=== PATIENT | female | born 1975 | race Caucasian/White ===

== ENCOUNTER 2022-08-02 12:06 | Day surgery (SDC) | payer OTHER ==
[2022-08-02 12:56] VITALS: TEMP 98.9
[2022-08-02] MEDS ORDERED: LACTATED RINGERS 1,000 ML IV ONE (12:56)
[2022-08-02 13:02] LABS: Glucose,Whole Blood 104 mg/dL (70-110)
[2022-08-02] MEDS ORDERED: LIDOCAINE 2% INJ 20 MG/ML (2 ML VIAL) ONE (13:40)
[2022-08-02] MEDS ORDERED: PROPOFOL 10 MG/ML 20 ML VIAL IV ONE (13:40)
--- NOTE | 2022-08-02 13:58 | P.PCN ---
Date of Procedure: 08/02/22 Procedure(s) Performed: BRIEF HISTORY: Patient is a 46-year-old, pleasant, white female scheduled for an upper endoscopy as a part of evaluation of intermittent dysphagia to solids for the last 3 weeks. Usually happens with solids and elevated liquids. She has long-standing history of GERD and has been on omeprazole 20 mg daily. He scheduled for an upper endoscopy with possible dilation today.. PROCEDURE PERFORMED: Esophagogastroduodenoscopy with biopsy. PREOPERATIVE DIAGNOSIS: Long-standing history of GERD and intermittent dysphagia to solids. IV sedation per anesthesia. PROCEDURE: After informed consent was obtained, the patient was brought into the endoscopy unit. IV sedation was administered by Anesthesia under continuous monitoring. Initially the Olympus GIF-140 video endoscope was inserted into the mouth. Esophagus intubated without any difficulty. It was gradually advanced into the stomach and duodenum and carefully examined. The bulb and the second part of the duodenum appeared normal. The scope at this time was withdrawn to the stomach, adequately insufflated with air, and upon careful examination, mucosa of the antrum, had mild gastritis and biopsies were done from this area. Mucosa of the body, cardia and the fundus appeared normal. The scope was then withdrawn into the esophagus. The GE junction was located at 39 cm from the incisors. The esophagus appeared normal. There were no erosions or ulcerations seen. No evidence of esophageal stricture. Multiple biopsies were done from the mid and distal esophagus to rule out eosinophilic esophagitis and the patient tolerated the procedure well. IMPRESSION: 1. Normal-appearing esophagus with no evidence of esophagitis or esophageal stricture. 2. Minimal antral gastritis. RECOMMENDATIONS: The findings of this examination were discussed with the patient as well as her family. She was advised to continue with omeprazole 20 mg daily and follow antireflux measures. In the meantime, we will await biopsy results and she will be seen in office in 3-4 weeks.
[2022-08-02 14:23] VITALS: BP 129/83; PULSE 70; RESP 20
== END 2022-08-02 14:51 | disposition home or self-care (01) ==
LOC: ORWHC2ENDO 12:06
PROVIDERS: ATTEND Internal Medicine Gastroenterology
DX: K21.9 Gastro-esophageal reflux disease without esophagitis (principal); K29.50 Unspecified chronic gastritis without bleeding; E11.9 Type 2 diabetes mellitus without complications; Z79.899 Other long term (current) drug therapy
CPT/HCPCS: 81025; 88305; 88342; 43239; J2704; J2001

== ENCOUNTER → 2023-01-16 | Outpatient (CLI) | payer OTHER ==
--- NOTE | 2023-01-17 23:00 | MM ---
Reason for Exam: Screening (asymptomatic). Baseline mammogram. Patient History: Menarche at age 13. First Full-Term at age 20. Last menstrual period: 01/09/2023 Risk Values: [place] 5 year model risk: 0.6%. NCI Lifetime model risk: 6.9%. Prior Study Comparison: Patient's first Mammogram. Tissue Density: There are scattered fibroglandular densities. Findings: Analyzed By CAD. There is an area of asymmetric density located centrally on the left cc view which is more defined. It incompletely disperses on 3-D images and further evaluation is recommended. Otherwise, no significant change. Overall Assessment: Incomplete: need additional imaging evaluation, BI-RAD 0 Management: Special View Mammogram of the left breast. Diagnostic Breast Ultrasound of the left breast. Additional views to include spot 3-D CC, 3-D CC rolled medial, and 3-D lateral views. Targeted left breast ultrasound if any persisting abnormality. [facility] will attempt to contact patient to return for supplemental views and ultrasound if indicated. Electronically signed and approved by: Garima Kirk M.D. Radiologist
== END | disposition home or self-care (01) ==
LOC: RADMAMWWP 16:49
PROVIDERS: ATTEND Family Medicine
DX: Z12.31 Encounter for screening mammogram for malignant neoplasm of breast (principal)
CPT/HCPCS: 77063; 77067

== ENCOUNTER 2023-01-18 13:08 | Observation (INO) | payer OTHER ==
[2023-01-18] MEDS ORDERED: ASPIRIN 81 MG PO STA (13:39)
[2023-01-18] MEDS ORDERED: NITROGLYCERIN SL TABS 0.4 MG TAB SUBLINGUAL STA (13:39)
--- NOTE | 2023-01-18 13:44 | ED ---
General Adult HPI - General Chief complaint: Chest Pain Stated complaint: Chest pain Time Seen by Provider: 01/18/23 13:10 Source: patient, EMS Mode of arrival: EMS Limitations: no limitations - History of Present Illness Initial comments: This patient is a 47-year-old woman presenting to have evaluation of a constellation of things that started around 11 AM. The patient states she had been doing some cleaning around the house and she noticed she was developing headache. She describes it as generalized, pounding, she could hear pulse associated with it. She did not have any neurologic symptoms. She states that shortly after that she noticed that her chest was feeling tight. She checked her blood pressure and it was up over 200. EMS was called and brought the patient to be seen. She did have aspirin and nitroglycerin and the symptoms hav e resolved. Patient states she noticed there was some left arm numbness associated with the symptoms. Currently all of the symptoms have resolved. No dyspnea, diaphoresis, nausea or vomiting. No lightheadedness or syncope. No palpitations. Onset/Timin -: hour(s) Location: head, chest Radiation: non-radiation Quality: aching Consistency: now resolved Improves with: none Worsens with: none Associated Symptoms: denies other symptoms Treatments Prior to Arrival: none - Related Data Home Medications Medication Instructions Recorded Confirmed Cholecalciferol [Vitamin D3 (125 125 mcg PO DAILY 08/01/22 08/01/22 Mcg = 5000 Iu)] Naltrexone HCl 25 mg PO DAILY 08/01/22 08/01/22 Omeprazole 20 mg PO DAILY 08/01/22 08/01/22 buPROPion HCL [buPROPion HCL XL] 300 mg PO DAILY 08/01/22 08/01/22 metFORMIN HCL 500 mg PO DAILY 08/01/22 08/01/22 Allergies Allergy/AdvReac Type Severity Reaction Status Date / Time No Known Allergies Allergy Verified 01/18/23 13:26 Review of Systems ROS Statement: Those systems with pertinent positive or pertinent negative responses have been documented in the HPI. ROS Other: All systems not noted in ROS Statement are negative. Constitutional: Denies: fever, chills, weakness Eyes: Denies: eye pain, vision change Respiratory: Denies: cough, dyspnea, wheezes Cardiovascular: Reports: chest pain. Denies: palpitations, edema, syncope Gastrointestinal: Denies: abdominal pain, nausea, vomiting, diarrhea Genitourinary: Denies: dysuria, frequency, hematuria Musculoskeletal: Denies: back pain Skin: Denies: rash Neurological: Reports: headache. Denies: weakness, numbness, paresthesias, confusion Hematological/Lymphatic: Denies: easy bleeding Past Medical History Past Medical History: No Reported History Additional Past Medical History / Comment(s): problems swallowing for the last 3 weeks, can drink liquids, has not been able to take any pills. pre diabetic. but was taking metformin. pt has issues with eating when not busy enough, was taking meds to loose wt and keep her mind off of food. per pt History of Any Multi-Drug Resistant Organisms: None Reported Additional Past Surgical History / Comment(s): D&C Past Anesthesia/Blood Transfusion Reactions: No Reported Reaction Past Psychological History: No Psychological Hx Reported Smoking Status: Former smoker, Light tobacco smoker Past Alcohol Use History: None Reported Past Drug Use History: None Reported - Past Family History Mother Family Medical History: Myocardial Infarction ([place]) General Exam Limitations: no limitations General appearance: alert, in no apparent distress Head exam: Present: atraumatic, normocephalic Eye exam: Present: normal appearance. Absent: scleral icterus, conjunctival injection ENT exam: Present: normal oropharynx Neck exam: Present: normal inspection, full ROM. Absent: tenderness, meningismus Respiratory exam: Present: normal lung sounds bilaterally. Absent: respiratory distress, wheezes, rales, rhonchi, stridor Cardiovascular Exam: Present: regular rate, normal rhythm, normal heart sounds. Absent: systolic murmur, diastolic murmur, rubs, gallop GI/Abdominal exam: Present: soft. Absent: distended, tenderness, guarding, rebound, rigid, mass, pulsatile mass, hernia Extremities exam: Present: normal inspection, full ROM, normal capillary refill. Absent: tenderness, pedal edema, calf tenderness Back exam: Present: normal inspection. Absent: CVA tenderness (R), CVA tenderness (L) Neurological exam: Present: alert, oriented X3, CN II-XII intact. Absent: motor sensory deficit Skin exam: Present: warm, dry, intact, normal color. Absent: rash Course Vital Signs 01/18/23 01/18/23 01/18/23 13:12 13:30 14:00 Temperature 98.7 F Pulse Rate 70 65 58 L Respiratory 18 18 20 Rate Blood Pressure 140/82 140/82 145/83 O2 Sat by Pulse 98 99 97 Oximetry 01/18/23 14:30 Temperature Pulse Rate 62 Respiratory 18 Rate Blood Pressure 133/69 O2 Sat by Pulse 99 Oximetry EKG Findings - EKG Results: EKG: interpreted by ERMD, sinus rhythm (Rate 69 bpm), normal axis, normal QRS - Blocks, [place], Hypertrophy, ST Abn: Repolarization changes or abnormalities: nonspecific abnormality, ST segment, and/or T wave Medical Decision Making - Medical Decision Making The patient had 2 view chest x-ray which I interpreted as negative for acute infiltrate, pneumothorax, congestive heart failure. Was pt. sent in by a medical professional or institution (, PA, YACHT BUILDER, urgent care, hospital, or detention...) When possible be specific @ -[No] Did you speak to anyone other than the patient for history (EMS, parent, family, police, friend...)? What history was obtained from this source @ -[The patient's did give some history Did you review nursing and triage notes (agree or disagree)? Why? @ -[I reviewed and agree with nursing and triage notes] Were old charts reviewed (outside hosp., previous admission, EMS record, old EKG, old radiological studies, urgent care reports/EKG's, detention records)? Report findings @ -[No old charts were reviewed] Differential Diagnosis (chest pain, altered mental status, abdominal pain women, abdominal pain men, vaginal bleeding, weakness, fever, dyspnea, syncope, headache, dizziness, GI bleed, back pain, seizure, CVA, palpatations, mental health, musculoskeletal)? @ -[Differential Chest Pain: Stable Angina, Unstable Angina, STEMI, NSTEMI Aortic Dissection, Pneumothorax, Musculoskeletal, Esophageal Spasm GERD, Cholecystitis, Pancreatitis, Zoster, this is not meant to be an all-inclusive list. EKG interpreted by me (3pts min.). @ -[I interpreted As above] X-rays interpreted by me (1pt min.). @ -\I interpreted as above CT interpreted by me (1pt min.). @ -[None done] U/S interpreted by me (1pt. min.). @ -[None done] What testing was considered but not performed or refused? (CT, X-rays, U/S, labs)? Why? @ -[None] What meds were considered but not given or refused? Why? @ -[None] Did you discuss the management of the patient with other professionals (professionals i.e. , PA, YACHT BUILDER, lab, RT, psych nurse, social media campaign manager, furnace builder, teacher, transportation security officer, renal case manager)? Give summary @ -[Case discussed with admitting physician Was smoking cessation discussed for >3mins.? @ -[No] Was critical care preformed (if so, how long)? @ -[No] Were there social determinants of health that impacted care today? How? (Homelessness, low income, unemployed, alcoholism, drug addiction, transportation, low edu. Level, literacy, decrease access to med. care, longterm, rehab)? @ -[No] Was there de-escalation of care discussed even if they declined (Discuss DNR or withdrawal of care, Hospice)? DNR status @ -[No] What co-morbidities impacted this encounter? (DM, HTN, Smoking, COPD, CAD, Cancer, CVA, ARF, Chemo, Hep., AIDS, mental health diagnosis, sleep apnea, morbid obesity)? @ -[None] Was patient admitted / discharged? Hospital course, mention meds given and route, prescriptions, significant lab abnormalities, going to OR and other pertinent info. @ -[The patient is 47-year-old woman with episode of chest pain and some associated hypertension. She did have relief with nitroglycerin and aspirin were administered by EMS. The patient has no previous history of cardiology workup, and given patient's family history will admit for serial cardiac enzymes, telemetry monitoring, cardiology consultation Undiagnosed new problem with uncertain prognosis? @ -[No] Drug Therapy requiring intensive monitoring for toxicity (Heparin, Nitro, Insulin, Cardizem)? @ -[No] Were any procedures done? @ -[No] Diagnosis/symptom? @ -[Acute chest pain Acute, or Chronic, or Acute on Chronic? @ -[Acute Uncomplicated (without systemic symptoms) or Complicated (systemic symptoms)? @ -[Uncomplicated Side effects of treatment? @ -[No] Exacerbation, Progression, or Severe Exacerbation? @ -[No] Poses a threat to life or bodily function? How? (Chest pain, [place], [place], pneumonia, PE, COPD, DKA, ARF, appy, cholecystitis, CVA, Diverticulitis, Homicidal, Suicidal, threat to staff... and all critical care pts) @ -[Chest pain if of cardiac etiology may regress to [place]/ - Lab Data Result diagrams: 01/18/23 13:58 01/18/23 13:58 Lab Results 01/18/23 01/18/23 01/18/23 Range/Units 13:58 13:58 13:58 WBC 9.8 (3.8-10.6) k/uL RBC 4.77 (3.80-5.40) m/uL Hgb 13.4 (11.4-16.0) gm/dL Hct 40.3 (34.0-46.0) % MCV 84.4 (80.0-100.0) fL MCH 28.2 (25.0-35.0) pg MCHC 33.4 (31.0-37.0) g/dL RDW 13.3 (11.5-15.5) % Plt Count 229 (150-450) k/uL MPV 8.6 Neutrophils % 71 % Lymphocytes % 21 % Monocytes % 5 % Eosinophils % 1 % Basophils % 0 % Neutrophils # 7.0 (1.3-7.7) k/uL Lymphocytes # 2.1 (1.0-4.8) k/uL Monocytes # 0.5 (0-1.0) k/uL Eosinophils # 0.1 (0-0.7) k/uL Basophils # 0.0 (0-0.2) k/uL PT 10.6 (9.0-12.0) sec INR 1.0 (<1.2) APTT 23.2 (22.0-30.0) sec Sodium 137 (137-145) mmol/L Potassium 4.4 (3.5-5.1) mmol/L Chloride 104 (98-107) mmol/L Carbon Dioxide 25 (22-30) mmol/L Anion Gap 8 mmol/L BUN 12 (7-17) mg/dL Creatinine 0.60 (0.52-1.04) mg/dL Est GFR (CKD-EPI)AfAm >90 (>60 ml/min/1.73 sqM) Est GFR (CKD-EPI)NonAf >90 (>60 ml/min/1.73 sqM) Glucose 105 H (74-99) mg/dL Calcium 9.4 (8.4-10.2) mg/dL Magnesium 1.8 (1.6-2.3) mg/dL Total Bilirubin 1.4 H (0.2-1.3) mg/dL AST 26 (14-36) U/L ALT 19 (4-34) U/L Alkaline Phosphatase 65 (38-126) U/L Troponin I (0.000-0.034) ng/mL Total Protein 7.2 (6.3-8.2) g/dL Albumin 4.1 (3.5-5.0) g/dL 01/18/23 Range/Units 13:58 WBC (3.8-10.6) k/uL RBC (3.80-5.40) m/uL Hgb (11.4-16.0) gm/dL Hct (34.0-46.0) % MCV (80.0-100.0) fL MCH (25.0-35.0) pg MCHC (31.0-37.0) g/dL RDW (11.5-15.5) % Plt Count (150-450) k/uL MPV Neutrophils % % Lymphocytes % % Monocytes % % Eosinophils % % Basophils % % Neutrophils # (1.3-7.7) k/uL Lymphocytes # (1.0-4.8) k/uL Monocytes # (0-1.0) k/uL Eosinophils # (0-0.7) k/uL Basophils # (0-0.2) k/uL PT (9.0-12.0) sec INR (<1.2) APTT (22.0-30.0) sec Sodium (137-145) mmol/L Potassium (3.5-5.1) mmol/L Chloride (98-107) mmol/L Carbon Dioxide (22-30) mmol/L Anion Gap mmol/L BUN (7-17) mg/dL Creatinine (0.52-1.04) mg/dL Est GFR (CKD-EPI)AfAm (>60 ml/min/1.73 sqM) Est GFR (CKD-EPI)NonAf (>60 ml/min/1.73 sqM) Glucose (74-99) mg/dL Calcium (8.4-10.2) mg/dL Magnesium (1.6-2.3) mg/dL Total Bilirubin (0.2-1.3) mg/dL AST (14-36) U/L ALT (4-34) U/L Alkaline Phosphatase (38-126) U/L Troponin I <0.012 (0.000-0.034) ng/mL Total Protein (6.3-8.2) g/dL Albumin (3.5-5.0) g/dL Disposition Clinical Impression: Chest pain Disposition: ADMITTED IP TO THIS HOSP Condition: Good Instructions (If sedation given, give patient instructions): Chest Pain (ED) Is patient prescribed a controlled substance at d/c from ED?: No Referrals: Ra Granados MD [Primary Care Provider] - 1-2 days
[2023-01-18 14:08] LABS: Basophils % (A) 0 %; Eosinophils # (A) 0.1 k/uL (0-0.7); Eosinophils % (A) 1 %; HCT 40.3 % (34.0-46.0); HGB 13.4 gm/dL (11.4-16.0); Lymphocytes # (A) 2.1 k/uL (1.0-4.8); Lymphocytes % (A) 21 %; MCH 28.2 pg (25.0-35.0); MCHC 33.4 g/dL (31.0-37.0); MCV 84.4 fL (80.0-100.0); Mean Platelet Volume 8.6; Monocytes # (A) 0.5 k/uL (0-1.0); Monocytes % (A) 5 %; Neutrophils % (A) 71 %; Platelet Count 229 k/uL (150-450); RBC 4.77 m/uL (3.80-5.40); RDW 13.3 % (11.5-15.5); WBC 9.8 k/uL (3.8-10.6)
[2023-01-18 14:17] LABS: Partial Thromboplastin Time 23.2 sec (22.0-30.0); Prothrombin Time 10.6 sec (9.0-12.0)
--- NOTE | 2023-01-18 14:17 | XR ---
EXAMINATION TYPE: XR chest 2V DATE OF EXAM: 01/18/2023 COMPARISON: NONE HISTORY: Chest pain. TECHNIQUE: Frontal and lateral views of the chest are obtained. FINDINGS: Low lung volumes are noted.There is no focal air space opacity, pleural effusion, or pneum othorax seen. The cardiac silhouette size is upper limits of normal. The osseous structures are in tact. Overlying bra strap. IMPRESSION: No acute process.
[2023-01-18 14:29] LABS: ALT 19 U/L (4-34); African American GFR (CKD) >90 (>60 ml/min/1.73 sqM); Albumin 4.1 g/dL (3.5-5.0); Anion Gap 8 mmol/L; Blood Urea Nitrogen 12 mg/dL (7-17); Calcium 9.4 mg/dL (8.4-10.2); Carbon Dioxide 25 mmol/L (22-30); Chloride 104 mmol/L (98-107); Glucose 105 mg/dL (74-99); Non-African American GFR(CKD) >90 (>60 ml/min/1.73 sqM); Sodium 137 mmol/L (137-145); Total Bilirubin 1.4 mg/dL (0.2-1.3); Total Protein 7.2 g/dL (6.3-8.2)
[2023-01-18 14:30] LABS: AST 26 U/L (14-36); Alkaline Phosphatase 65 U/L (38-126); Magnesium 1.8 mg/dL (1.6-2.3); Potassium 4.4 mmol/L (3.5-5.1)
[2023-01-18] MEDS ORDERED: NITROGLYCERIN SL TABS 0.4 MG TAB SUBLINGUAL PRN (15:33)
[2023-01-18] MEDS: SODIUM CHLORIDE 0.9% 1,000 ML IV SCH (16:54)
--- NOTE | 2023-01-18 18:24 | P.HPIM ---
History of Present Illness H&P Date: 01/18/23 47 year old F with PMH of GERD presents to the ED for chest pain. Patient reports chest pain that started while does light housework. Initially, patient started experiencing a headache which was generalized and throbbing associated with floaters and lightheadedness. Soon after, she started to experience chest tightness radiating to the left arm. She reports a SBP of 213. This prompted her to call EMS. She was given ASA and nitro which relieved her pain. Of note, patient experienced the same headache 2 days ago while at work, noted to have SBP of 200. In the ED, her vital signs were stable. BP was as high as 145/83. CBC, Coag panel was within normal limits. CMP showed glucose 105 and T. Bili of 1.4. Troponin < 0.012. Mag 1.8. CXR negative. EKG showed NSR with no ST elevation. She is admitted for chest pain, rule out ACS, and Cardiology consultation. Pertinent positives and negatives as discussed in HPI, a complete review of systems was performed and all other systems are negative. General: non toxic, no distress, appears at stated age Derm: warm, dry Head: atraumatic, normocephalic, symmetric Eyes: EOMI, no lid lag, anicteric sclera Cardiovascular: S1S2 reg, no murmur Lungs: CTA bilateral, no rhonchi, no rales , no accessory muscle use Ext: no gross muscle atrophy, no edema, no contractures Neuro: no focal neuro deficits Psych: Alert, oriented, appropriate affect Chest pain likely due to hypertensive urgency Morbid obesity Elevated total bilirubin GERD Based on my assessment of this patient, this patient meets a high complexity level of care. Patient has an acute diagnosis of chest pain that poses a threat to life or bodily function. Her HEART score is 3. Chest pain likely due to hypertensive urgency: Start HCTZ 12.5 mg PO QD. Q2H BP monitoring. Trend troponin/EKG to rule out ACS. Telemetry monitoring. ASA 325 mg PO x 1 in the ED. Start ASA 81 mg PO QD. Cardiology consultation. Obtain Echo. Morbid obesity: Patient encouraged weight loss. Elevated total bilirubin: Unknown etiology. Appears non obstructive. Outpatient workup. GERD: Prilosec 20 mg PO QD. Episodic hypertension, patient may benefit from evaluation of secondary causes of hypertension. Lovenox SQ for DVT prophylaxis. FULL CODE. I have reviewed the following medical consultant notes: I have reviewed the results of the following tests: CBC, CMP, Trop, CXR, Coag panel I have ordered the following tests: Trop, Echo I have discussed the care of this patient with the following independent histori an: I have independently interpreted the following test below: EKG as above. I have discussed the management of this patient with the following physician: Extensively with the ED physician. Past Medical History Past Medical History: No Reported History Additional Past Medical History / Comment(s): problems swallowing for the last 3 weeks, can drink liquids, has not been able to take any pills. pre diabetic. but was taking metformin. pt has issues with eating when not busy enough, was taking meds to loose wt and keep her mind off of food. per pt History of Any Multi-Drug Resistant Organisms: None Reported Additional Past Surgical History / Comment(s): D&C Past Anesthesia/Blood Transfusion Reactions: No Reported Reaction Past Psychological History: No Psychological Hx Reported Smoking Status: Former smoker, Light tobacco smoker Past Alcohol Use History: None Reported Past Drug Use History: None Reported - Past Family History Mother Family Medical History: Myocardial Infarction ([place]) Medications and Allergies Home Medications Medication Instructions Recorded Confirmed Type Cholecalciferol [Vitamin D3 (125 125 mcg PO DAILY 08/01/22 01/18/23 History Mcg = 5000 Iu)] Omeprazole 20 mg PO DAILY 08/01/22 01/18/23 History Allergies Allergy/AdvReac Type Severity Reaction Status Date / Time No Known Allergies Allergy Verified 01/18/23 16:30 Physical Exam Vitals: Vital Signs Temp Pulse Resp BP Pulse Ox 01/18/23 14:30 62 18 133/69 99 01/18/23 14:00 58 L 20 145/83 97 01/18/23 13:30 65 18 140/82 99 01/18/23 13:12 98.7 F 70 18 140/82 98 Intake and Output 01/18/23 01/18/23 01/18/23 06:59 14:59 22:59 Other: Weight 108.409 kg Results CBC & Chem 7: 01/18/23 13:58 01/18/23 13:58 Labs: Abnormal Lab Results - Last 24 Hours (Table) 01/18/23 Range/Units 13:58 Glucose 105 H (74-99) mg/dL Total Bilirubin 1.4 H (0.2-1.3) mg/dL
[2023-01-18] MEDS ORDERED: hydroCHLOROthiazide 12.5 MG CAP PO SCH (18:30)
[2023-01-19] MEDS: PANTOPRAZOLE 40 MG TABLET PO SCH (06:05)
[2023-01-19] MEDS ORDERED: ASPIRIN 325 MG TAB PO SCH (09:00)
[2023-01-19] MEDS: CHOLECALCIFEROL 125 MCG (5000 IU) TABLET PO SCH (09:37)
[2023-01-19] MEDS: LISINOPRIL-HCTZ 20-12.5 MG 1 EACH TAB PO SCH (09:38)
[2023-01-19] MEDS: ASPIRIN 81 MG PO SCH (09:38)
[2023-01-19] MEDS: amLODIPine 10 MG TAB PO SCH (09:38)
--- NOTE | 2023-01-19 11:27 | P.CRDCN ---
History of Present Illness Consult date: 01/19/23 History of present illness: HISTORY OF PRESENTING ILLNESS 47-year-old with past medical history of GERD, obesity presented to the hospital with symptoms of substernal chest pain and feeling headaches. She checked her blood pressure at home and was noticed to have elevated blood pressure. On admission to the hospital her systolic blood pressure was in 200s. Her ECG shows normal sinus rhythm with no significant ST-T wave changes at rest. Her troponins are negative. Reports family history of premature coronary artery disease in brother and mother. Also family history of diabetes and hypertension REVIEW OF SYSTEMS 14 point review of system is negative except what is mentioned above in HPI. PHYSICAL EXAMINATION Vital signs reviewed. Head: Normocephalic. Eyes: Sclerae nonicteric. Neck: Brisk carotid upstroke, no jugular venous distention. Lungs: Clear to auscultation. Heart: Regular rate and rhythm, S1-S2, no S3, no murmur or rub. Abdomen: Soft nontender, positive bowel sounds no organomegaly. Extremities: No edema, intact distal pulses. ASSESSMENT Atypical chest pain symptoms, likely due to elevated blood pressure Multiple risk factors for CAD including strong family history, and control blood pressure, obesity Uncontrolled HTN PLAN Acute coronary syndrome is ruled out. Obtain echocardiogram Obtain stress echocardiogram with contrast If stress echocardiogram is positive, plan for cardiac catheterization. I already counseled the patient about the risk factors and the procedure steps. Continue aspirin, lisinopril had a pleasant, amlodipine. Maybe recommend cutting down amlodipine to 5 mg daily. Add atorvastatin 40 mg daily Obtain HbA1c Obtain lipid panel If stress test is normal, outpatient follow-up with Dr. Edmondson Past Medical History Past Medical History: GERD/Reflux Additional Past Medical History / Comment(s): problems swallowing d/t GERD. pre diabetic. History of Any Multi-Drug Resistant Organisms: None Reported Additional Past Surgical History / Comment(s): D&C, EGD Past Anesthesia/Blood Transfusion Reactions: No Reported Reaction Past Psychological History: No Psychological Hx Reported Smoking Status: Former smoker, Light tobacco smoker Past Alcohol Use History: None Reported Additional Past Alcohol Use History / Comment(s): quit 13 yrs ago Past Drug Use History: None Reported - Past Family History Mother Family Medical History: Myocardial Infarction ([place]) Medications and Allergies Home Medications Medication Instructions Recorded Confirmed Type Cholecalciferol [Vitamin D3 (125 125 mcg PO DAILY 08/01/22 01/18/23 History Mcg = 5000 Iu)] Omeprazole 20 mg PO DAILY 08/01/22 01/18/23 History Allergies Allergy/AdvReac Type Severity Reaction Status Date / Time No Known Allergies Allergy Verified 01/18/23 16:30 Physical Exam Vitals: Vital Signs Temp Pulse Pulse Resp BP BP Pulse Ox 01/19/23 07:00 98.8 F 57 L 16 174/92 98 01/19/23 06:05 52 L 150/88 01/19/23 02:00 97.9 F 49 L 15 147/86 99 01/18/23 21:30 16 01/18/23 21:18 98.1 F 55 L 16 167/91 100 01/18/23 18:42 98.3 F 60 18 157/98 100 01/18/23 14:30 62 18 133/69 99 01/18/23 14:00 58 L 20 145/83 97 01/18/23 13:30 65 18 140/82 99 01/18/23 13:12 98.7 F 70 18 140/82 98 Intake and Output 01/18/23 01/19/23 01/19/23 22:59 06:59 14:59 Other: Voiding Method Toilet # Voids 1 2 Weight 108.409 kg Results 01/18/23 13:58 01/18/23 13:58 Cardiac Enzymes 01/18/23 01/18/23 01/18/23 Range/Units 13:58 13:58 16:51 AST 26 (14-36) U/L Troponin I <0.012 0.021 (0.000-0.034) ng/mL 01/18/23 Range/Units 19:31 AST (14-36) U/L Troponin I 0.030 (0.000-0.034) ng/mL Coagulation 01/18/23 Range/Units 13:58 PT 10.6 (9.0-12.0) sec APTT 23.2 (22.0-30.0) sec CBC 01/18/23 Range/Units 13:58 WBC 9.8 (3.8-10.6) k/uL RBC 4.77 (3.80-5.40) m/uL Hgb 13.4 (11.4-16.0) gm/dL Hct 40.3 (34.0-46.0) % Plt Count 229 (150-450) k/uL Comprehensive Metabolic Panel 01/18/23 Range/Units 13:58 Sodium 137 (137-145) mmol/L Potassium 4.4 (3.5-5.1) mmol/L Chloride 104 (98-107) mmol/L Carbon Dioxide 25 (22-30) mmol/L BUN 12 (7-17) mg/dL Creatinine 0.60 (0.52-1.04) mg/dL Glucose 105 H (74-99) mg/dL Calcium 9.4 (8.4-10.2) mg/dL AST 26 (14-36) U/L ALT 19 (4-34) U/L Alkaline Phosphatase 65 (38-126) U/L Total Protein 7.2 (6.3-8.2) g/dL Albumin 4.1 (3.5-5.0) g/dL Current Medications Generic Name Dose Route Start Last Admin Trade Name Freq PRN Reason Stop Dose Admin Amlodipine Besylate 10 mg 01/19/23 09:00 01/19/23 09:38 Amlodipine 10 Mg Tab PO 10 mg DAILY BART Administration Aspirin 81 mg 01/19/23 09:00 01/19/23 09:38 Aspirin 81 Mg PO 81 mg DAILY BART Administration Atorvastatin Calcium 40 mg 01/19/23 21:00 Atorvastatin 40 Mg Tab PO [facility] Cholecalciferol 125 mcg 01/19/23 09:00 01/19/23 09:37 Cholecalciferol 125 Mcg (5000 Iu) Tablet PO 125 mcg DAILY BART Administration Lisinopril/HCTZ 1 each 01/19/23 09:00 01/19/23 09:38 Lisinopril-Hctz 20-12.5 Mg 1 Each Tab PO 1 each DAILY BART Administration Sodium Chloride 1,000 mls @ 20 mls/hr 01/18/23 15:45 01/18/23 16:54 Saline 0.9% IV Not Given .Q24H BART Nitroglycerin 0.4 mg 01/18/23 15:33 Nitroglycerin Sl Tabs 0.4 Mg Tab SUBLINGUAL Q5M PRN Chest Pain Pantoprazole Sodium 40 mg 01/19/23 07:30 01/19/23 06:05 Pantoprazole 40 Mg Tablet PO 40 mg [id number] BART Administration Intake and Output 01/18/23 01/19/23 01/19/23 22:59 06:59 14:59 Other: Voiding Method Toilet # Voids 1 2 Weight 108.409 kg 01/18/23 13:58 01/18/23 13:58
[2023-01-19 11:35] LABS: Chol/HDL Ratio 4.37 Ratio; LDL Cholesterol,Calculated 135.5 mg/dL (0.0-131.0)
--- NOTE | 2023-01-19 12:20 | P.PN ---
Subjective Progress Note Date: 01/19/23 47 year old F with PMH of GERD presents to the ED for chest pain. Patient reports chest pain that started while does light housework. Initially, patient started experiencing a headache which was generalized and throbbing associated with floaters and lightheadedness. Soon after, she started to experience chest tightness radiating to the left arm. She reports a SBP of 213. This prompted her to call EMS. She was given ASA and nitro which relieved her pain. Of note, patient experienced the same headache 2 days ago while at work, noted to have SBP of 200. In the ED, her vital signs were stable. BP was as high as 145/83. CBC, Coag panel was within normal limits. CMP showed glucose 105 and T. Bili of 1.4. Troponin < 0.012. Mag 1.8. CXR negative. EKG showed NSR with no ST elevation. She is admitted for chest pain, rule out ACS, and Cardiology consultation. 01/19 Patient was seen and examined. No acute events overnight. She reports continued headache and chest pressure but less intense when compared to yesterday. Started on HCTZ 12.5 mg yesterday, BP this morning is 174/92. Troponins 0.021, 0.030. Lipid panel shows T. Chol 211 and LDL 135.5. Case discussed with Dr. Edmondson, plans for Echo, stress echo, start ASA/Lipitor. I have added Amlodipine 10 mg PO QD along with Lisinopril-HCTZ 20-12.5 mg PO QD. General: non toxic, no distress, appears at stated age Derm: warm, dry Head: atraumatic, normocephalic, symmetric Eyes: EOMI, no lid lag, anicteric sclera Cardiovascular: S1S2 reg, no murmur Lungs: CTA bilateral, no rhonchi, no rales , no accessory muscle use Ext: no gross muscle atrophy, no edema, no contractures Neuro: no focal neuro deficits Psych: Alert, oriented, appropriate affect Chest pain likely due to hypertensive urgency Dyslipidemia Morbid obesity Elevated total bilirubin GERD Based on my assessment of this patient, this patient meets a high complexity level of care. Patient has an acute diagnosis of chest pain that poses a threat to life or bodily function. Her HEART score is 3. Chest pain likely due to hypertensive urgency: Start HCTZ 12.5 mg PO QD. Add Lisinopril 20 mg PO QD and Amlodipine 10 mg PO QD. Q2H BP monitoring. Troponins slightly elevated but delta trop is negative. Telemetry monitoring. Start ASA 81 mg PO QD. Agree with Lipitor 40 mg PO QD. Cardiology consultation. Echo and Stress echo pending. Dyslipidemia: Lipitor as above. Morbid obesity: Patient encouraged weight loss. Elevated total bilirubin: Unknown etiology. Appears non obstructive. Outpatient workup. GERD: Prilosec 20 mg PO QD. Episodic hypertension, patient may benefit from evaluation of secondary causes of hypertension. Lovenox SQ for DVT prophylaxis. FULL CODE. I have reviewed the following brand sales consultant notes: Cardiology note. I have reviewed the results of the following tests: Troponin x 2. I have ordered the following tests: Echo. Agree with A1c and stress echo. I have discussed the care of this patient with the following independent historian: I have independently interpreted the following test below: I have discussed the management of this patient with the following physician: Discussed with mk Casillas as above. Objective - Vital Signs Vital signs: Vital Signs Temp 98.8 F 01/19/23 07:00 Pulse 57 L 01/19/23 07:00 Resp 16 01/19/23 07:00 BP 174/92 01/19/23 07:00 Pulse Ox 98 01/19/23 07:00 FiO2 Intake & Output 01/18/23 01/19/23 01/19/23 18:59 06:59 18:59 Weight 108.409 kg 108.409 kg Other: Voiding Method Toilet # Voids 2 - Labs CBC & Chem 7: 01/18/23 13:58 01/18/23 13:58 Labs: Abnormal Lab Results - Last 24 Hours (Table) 01/18/23 01/19/23 Range/Units 13:58 06:09 Glucose 105 H (74-99) mg/dL Total Bilirubin 1.4 H (0.2-1.3) mg/dL Cholesterol 211.00 H (0.00-200.00) mg/dL LDL Cholesterol, Calc 135.5 H (0.0-131.0) mg/dL
[2023-01-19] MEDS: SODIUM CHLORIDE 0.9% 1,000 ML IV SCH (19:37)
[2023-01-19] MEDS ORDERED: ACETAMINOPHEN TAB 325 MG TAB PO PRN (19:38)
[2023-01-19] MEDS ORDERED: ATORVASTATIN 40 MG TAB PO SCH (21:00)
[2023-01-20] MEDS: PANTOPRAZOLE 40 MG TABLET PO SCH (05:49)
[2023-01-20] MEDS: amLODIPine 10 MG TAB PO SCH (08:14)
[2023-01-20] MEDS: ASPIRIN 81 MG PO SCH (08:14)
[2023-01-20] MEDS: LISINOPRIL-HCTZ 20-12.5 MG 1 EACH TAB PO SCH (08:14)
[2023-01-20] MEDS: CHOLECALCIFEROL 125 MCG (5000 IU) TABLET PO SCH (08:14)
[2023-01-20 08:37] VITALS: RESP 16
--- NOTE | 2023-01-20 11:45 | P.DS ---
Providers Date of admission: 01/18/23 15:33 Expected date of discharge: 01/20/23 Attending physician: Wood Mcelroy MD Consults: 01/18/23 15:33 Consult Physician Routine Consulting Provider: Power Raygoza Consult Reason/Comments: chest pain Do you want consulting provider notified?: Yes Primary care physician: [facility] Course: 47 year old F with PMH of GERD presents to the ED for chest pain. Patient reports chest pain that started while does light housework. Initially, patient started experiencing a headache which was generalized and throbbing associated with floaters and lightheadedness. Soon after, she started to experience chest tightness radiating to the left arm. She reports a SBP of 213. This prompted her to call EMS. She was given ASA and nitro which relieved her pain. Of note, patient experienced the same headache 2 days ago while at work, noted to have SBP of 200. In the ED, her vital signs were stable. BP was as high as 145/83. CBC, Coag panel was within normal limits. CMP showed glucose 105 and T. Bili of 1.4. Troponin < 0.012. Mag 1.8. CXR negative. EKG showed NSR with no ST elevation. She is admitted for chest pain, rule out ACS, and Cardiology consultation. 01/19 Patient was seen and examined. No acute events overnight. She reports continued headache and chest pressure but less intense when compared to yesterday. Started on HCTZ 12.5 mg yesterday, BP this morning is 174/92. Troponins 0.021, 0.030. Lipid panel shows T. Chol 211 and LDL 135.5. Case discussed with Dr. Edmondson, plans for Echo, stress echo, start ASA/Lipitor. I have added Amlodipine 10 mg PO QD along with Lisinopril-HCTZ 20-12.5 mg PO QD. 01/20 Patient was seen and examined. She reports improvement in her headache and chest pressure today. Her BP this morning is 146/83. Case discussed with Dr. Leija, plans for stress echo today. She can potentially be discharged home if stress echo is negative. A1c is also 6.2. She will likely be discharged on Amlodipine, Lisinopril, HCTZ, ASA and Lipitor. Pertient studies include Echo, stress echo, CXR. General: non toxic, no distress, appears at stated age Derm: warm, dry Head: atraumatic, normocephalic, symmetric Eyes: EOMI, no lid lag, anicteric sclera Cardiovascular: S1S2 reg, no murmur Lungs: CTA bilateral, no rhonchi, no rales , no accessory muscle use Ext: no gross muscle atrophy, no edema, no contractures Neuro: no focal neuro deficits Psych: Alert, oriented, appropriate affect Discharge Diagnosis: Chest pain likely due to hypertensive urgency Dyslipidemia Morbid obesity Elevated total bilirubin GERD This complex discharge took 35 minutes to complete. Patient Condition at Discharge: Stable Plan - Discharge Summary New Discharge Prescriptions: No Action Cholecalciferol [Vitamin D3 (125 Mcg = 5000 Iu)] 125 mcg PO DAILY Omeprazole 20 mg PO DAILY Discharge Medication List Cholecalciferol [Vitamin D3 (125 Mcg = 5000 Iu)] 125 mcg PO DAILY 08/01/22 [History] Omeprazole 20 mg PO DAILY 08/01/22 [History] Follow up Appointment(s)/Referral(s): Ra Granados MD [Primary Care Provider] - 1-2 days Patient Instructions/Handouts: Chest Pain (ED)
--- NOTE | 2023-01-20 14:58 | CA ---
Stress Echo Report Nesha Marie Age: 47 Gender: F : 1975 Exam Date: 01/20/2023 10:27 Exam Location: [facility] Ht (in): 64 Wt (lb): 239 Ordering Physician: Nando Edmondson MD ([email or web address]) Referring Physician: CALVIN, Escalator Operator: CINDI, Technologist Procedure CPT: Indication: Chest Pain ICD-9 Codes: Rhythm: Patient History: Chest pain and shortness of breath Cardiac Medications: Medications in past 24 hours: Contrast: Stress Results Protocol: Jose Total dose(mL): Exercise Duration (min:sec): Max ST Depression (mm): Angina Score: Wilcox Score: METS: 7.3 Resting HR: 101 Resting BP: 134 / 82 Peak HR: 157 Peak BP: / 86 Max Predicted HR: 174 90 % Max Predicted HR Target HR: 148 Double Product: Stress Summary: BP Response: Reason for Termination: MAX EXERTION/TARGET HR Cardiac Symptoms: FATIGUE ECG Analysis Resting ECG: Stress ECG: Arrhythmia: Echo Analysis Resting Echo: Peak Echo Analysis: MEASUREMENTS (Male/Female) Normal Values CONCLUSIONS Patient underwent exercise stress echo with a Jose protocol treadmill stress test. Patient exercised into Stage 2 for a total of 6 minutes and 1 seconds reaching a total of 7.3 METS. Patient's maximum heart rate was 157 which represented 90% age- predicted maximum heart rate. Stress EKG portion: At baseline patient's EKG showed normal sinus rhythm, normal axis, no significant ST or T wave abnormalities. At peak exercise, EKG showed nondiagnostic minimal 0.[address] depressions in the inferior lateral leads. Stress echo portion: 2-D echocardiogram was performed in the parasternal long, personal short, apical 2 and apical four-chamber views at rest, peak exercise and in recovery. At baseline, echocardiogram showed left ventricular ejection fraction 55% without wall motion abnormalities. With peak exercise, echocardiogram shows improvement in left ventricular ejection fraction, increase contractility, decrease in left ventricular end systolic dimension without wall motion abnormalities consistent with a normal response to exercise. Conclusions: 1. Normal EKG and echo response to exercise without evidence of inducible ischemia. 2. Fair exercise capacity. Dr. Drake Leija DO (Electronically Signed) Final Date: 20 January 2023 14:57
[2023-01-20 15:15] VITALS: BP 98/65; PULSE 67; TEMP 97.9
[2023-01-20] MEDS: SODIUM CHLORIDE 0.9% 1,000 ML IV SCH (17:08)
== END 2023-01-20 17:41 | disposition home or self-care (01) ==
LOC: EC 13:08 → 6NMEDSUR 15:33
PROVIDERS: ADMIT Family Medicine; ATTEND Family Medicine
DX: R07.89 Other chest pain (principal); E78.5 Hyperlipidemia, unspecified; I10 Essential (primary) hypertension; R20.0 Anesthesia of skin; R73.03 Prediabetes; R51.9 Headache, unspecified; H43.399 Other vitreous opacities, unspecified eye; E66.01 Morbid (severe) obesity due to excess calories; Z68.41 Body mass index [BMI] 40.0-44.9, adult; F17.200 Nicotine dependence, unspecified, uncomplicated; E80.7 Disorder of bilirubin metabolism, unspecified; K21.9 Gastro-esophageal reflux disease without esophagitis; Z79.84 Long term (current) use of oral hypoglycemic drugs; Z79.899 Other long term (current) drug therapy; Z82.49 Family history of ischemic heart disease and other diseases of the circulatory system; Z83.3 Family history of diabetes mellitus
CPT/HCPCS: 99285; 36415; 93306; 93351; 80061; 80053; 83735; 84484; 85025; 85610; 85730; 83036; 71046; G0378 ×3; Q9950

== ENCOUNTER 2023-02-06 09:48 | Emergency (ER) | payer OTHER ==
[2023-02-06 10:18] VITALS: RESP 16; TEMP 97.9
[2023-02-06 11:28] LABS: Basophils % (A) 0 %; Eosinophils % (A) 0 %; Lymphocytes % (A) 14 %; MCH 28.5 pg (25.0-35.0); MCHC 34.3 g/dL (31.0-37.0); MCV 83.1 fL (80.0-100.0); Mean Platelet Volume 9.3; Monocytes # (A) 0.5 k/uL (0-1.0); Monocytes % (A) 3 %; Neutrophils % (A) 81 %; Platelet Count 256 k/uL (150-450); RBC 4.93 m/uL (3.80-5.40); RDW 13.6 % (11.5-15.5); WBC 14.8 k/uL (3.8-10.6)
[2023-02-06 11:38] LABS: ALT 43 U/L (4-34); AST 32 U/L (14-36); African American GFR (CKD) >90 (>60 ml/min/1.73 sqM); Albumin 4.5 g/dL (3.5-5.0); Alkaline Phosphatase 91 U/L (38-126); Anion Gap 14 mmol/L; Blood Urea Nitrogen 12 mg/dL (7-17); Calcium 10.1 mg/dL (8.4-10.2); Carbon Dioxide 25 mmol/L (22-30); Chloride 100 mmol/L (98-107); Glucose 115 mg/dL (74-99); Non-African American GFR(CKD) >90 (>60 ml/min/1.73 sqM); Potassium 3.9 mmol/L (3.5-5.1); Sodium 139 mmol/L (137-145); Total Bilirubin 1.4 mg/dL (0.2-1.3); Total Protein 7.6 g/dL (6.3-8.2)
[2023-02-06 11:44] VITALS: BP 117/63; PULSE 65
--- NOTE | 2023-02-06 12:07 | ED ---
General Adult HPI - General Chief complaint: Dizziness Stated complaint: Dizziness Time Seen by Provider: 02/06/23 10:00 Source: patient, EMS Mode of arrival: EMS - History of Present Illness Initial comments: 47-year-old female presents to the emergency department reporting dizziness. States that she recently was diagnosed with high blood pressure. She has recently started 3 different blood pressure medications. She reports that taking 2 of her blood pressure medications and going to work. She began feeling palpitations and the sensation that she was going to pass out. She did take her blood pressure and it was noted to be 170 systolic. She has a prescription for hydralazine to take one her blood pressure gets higher the 160s that she did take one of these medications approximately an hour ago. She then called EMS. Upon hospital arrival the blood pressure is controlled. States that she is supposed to have a renal ultrasound performed due to concern for renal artery stenosis. Her dizziness is resolved at this time. No visual changes. No speech deficit. Denies any chest pain or shortness of breath. No other alleviating, precipitating or modifying factors - Related Data Home Medications Medication Instructions Recorded Confirmed Cholecalciferol [Vitamin D3 (125 125 mcg PO DAILY 08/01/22 02/06/23 Mcg = 5000 Iu)] Omeprazole 20 mg PO DAILY 08/01/22 02/06/23 Lisinopril-Hctz 20-12.5 mg 1 tab PO DAILY 02/06/23 02/06/23 [Zestoretic 20-12.5] hydrALAZINE HCL [Apresoline] 10 mg PO BID PRN 02/06/23 02/06/23 Previous Rx's Medication Instructions Recorded Aspirin 81 mg PO DAILY #30 tab 01/20/23 Atorvastatin [Lipitor] 40 mg PO HS #30 tab 01/20/23 amLODIPine [Norvasc] 10 mg PO DAILY #30 tab 01/20/23 Allergies Allergy/AdvReac Type Severity Reaction Status Date / Time No Known Allergies Allergy Verified 02/06/23 12:30 Review of Systems ROS Statement: Those systems with pertinent positive or pertinent negative responses have been documented in the HPI. ROS Other: All systems not noted in ROS Statement are negative. Past Medical History Past Medical History: GERD/Reflux Additional Past Medical History / Comment(s): problems swallowing d/t GERD. pre diabetic. History of Any Multi-Drug Resistant Organisms: None Reported Additional Past Surgical History / Comment(s): D&C, EGD Past Anesthesia/Blood Transfusion Reactions: No Reported Reaction Past Psychological History: No Psychological Hx Reported Smoking Status: Former smoker, Light tobacco smoker Past Alcohol Use History: None Reported Past Drug Use History: None Reported - Past Family History Mother Family Medical History: Myocardial Infarction (NE) General Exam General appearance: alert, in no apparent distress Head exam: Present: atraumatic, normocephalic, normal inspection Eye exam: Present: normal appearance, PERRL, EOMI. Absent: scleral icterus, conjunctival injection, periorbital swelling ENT exam: Present: normal exam, mucous membranes moist Neck exam: Present: normal inspection. Absent: tenderness, meningismus, lymphadenopathy Respiratory exam: Present: normal lung sounds bilaterally. Absent: respiratory distress, wheezes, rales, rhonchi, stridor Cardiovascular Exam: Present: regular rate, normal rhythm, normal heart sounds. Absent: systolic murmur, diastolic murmur, rubs, gallop, clicks GI/Abdominal exam: Present: soft, normal bowel sounds. Absent: distended, tenderness, guarding, rebound, rigid Extremities exam: Present: normal inspection, full ROM, normal capillary refill. Absent: tenderness, pedal edema, joint swelling, calf tenderness Back exam: Present: normal inspection Neurological exam: Present: alert, oriented X3, CN II-XII intact Psychiatric exam: Present: normal affect, normal mood Skin exam: Present: warm, dry, intact, normal color. Absent: rash Course Vital Signs 02/06/23 02/06/23 09:54 11:41 Temperature 97.9 F Pulse Rate 74 Pulse Rate [ 67 Sitting] Pulse Rate [ 79 Standing] Pulse Rate [ 65 Supine] Respiratory 16 Rate Blood Pressure 121/68 Blood Pressure 122/67 [Sitting] Blood Pressure 119/79 [Standing] Blood Pressure 117/63 [Supine] O2 Sat by Pulse 98 Oximetry Medical Decision Making - Medical Decision Making Was pt. sent in by a medical professional or institution (, PA, [employer], urgent care, hospital, or retirement...) When possible be specific @ -No Did you speak to anyone other than the patient for history (EMS, parent, family, police, friend...)? What history was obtained from this source @ -I spoke with EMS in regards to the patient's history Did you review nursing and triage notes (agree or disagree)? Why? @ -I reviewed and agree with nursing and triage notes Were old charts reviewed (outside hosp., previous admission, EMS record, old EKG, old radiological studies, urgent care reports/EKG's, retirement records)? Report findings @ -No old charts were reviewed Differential Diagnosis (chest pain, altered mental status, abdominal pain women, abdominal pain men, vaginal bleeding, weakness, fever, dyspnea, syncope, headache, dizziness, GI bleed, back pain, seizure, CVA, palpatations, mental health, musculoskeletal)? @ -Differential Palpitations Ventricular arrhythmias, atrial arrhythmias, myocardial infarction, anemia, thyrotoxicosis, electrolyte imbalance, hypokalemia, pulmonary embolism, pulmonary disease, drugs, alcohol, anxiety, stress.... This is not meant to be an all-inclusive list. EKG interpreted by me (3pts min.). @ -Yes and demonstrates sinus rhythm with rate of 72. MD interval 155. QRS 104. QTC 42. No acute ST segment elevations or depressions X-rays interpreted by me (1pt min.). @ -None done CT interpreted by me (1pt min.). @ -None done U/S interpreted by me (1pt. min.). @ -None done What testing was considered but not performed or refused? (CT, X-rays, U/S, labs)? Why? @ -Renal artery ultrasound however this cannot be obtained at this time What meds were considered but not given or refused? Why? @ -None Did you discuss the management of the patient with other professionals (professionals i.e. , PA, [employer], lab, RT, psych nurse, social studies department chair, college associate, teacher, staff antisubmarine officer, immigration case worker)? Give summary @ -I spoke with the technology sales specialist requesting a renal artery ultrasound however they state that the study is usually done on an outpatient basis early in the morning Was smoking cessation discussed for >3mins.? @ -No Was critical care preformed (if so, how long)? @ -No Were there social determinants of health that impacted care today? How? (Homelessness, low income, unemployed, alcoholism, drug addiction, transportat ion, low edu. Level, literacy, decrease access to med. care, correction, rehab)? @ -No Was there de-escalation of care discussed even if they declined (Discuss DNR or withdrawal of care, Hospice)? DNR status @ -No What co-morbidities impacted this encounter? (DM, HTN, Smoking, COPD, CAD, Cancer, CVA, ARF, Chemo, Hep., AIDS, mental health diagnosis, sleep apnea, morbid obesity)? @ - hypertension Was patient admitted / discharged? Hospital course, mention meds given and route, prescriptions, significant lab abnormalities, going to OR and other pertinent info. @ -Discharge. Upon arrival patient placed into room 27. IV is established laboratory studies were conducted. Orthostatics are performed and are negative. Patient's blood pressure is improved without intervention. I did attempt to obtain a renal artery ultrasound however this cannot be her formed at this time. cardiopulmonary technician and eeg tech did recommend that the patient call to try make a sooner appointment. Patient was given the phone number to the hospital. She is to continue taking her blood pressure medications as directed and return for any new or worsening symptoms. Patient was agreeable and discharged in stable condition Undiagnosed new problem with uncertain prognosis? @ -Yes Drug Therapy requiring intensive monitoring for toxicity (Heparin, Nitro, Insulin, Cardizem)? @ -No Were any procedures done? @ -No Diagnosis/symptom? @ -Near-syncope, accelerated hypertension Acute, or Chronic, or Acute on Chronic? @ -Acute Uncomplicated (without systemic symptoms) or Complicated (systemic symptoms)? @ -Complicated Side effects of treatment? @ -No Exacerbation, Progression, or Severe Exacerbation? @ -No Poses a threat to life or bodily function? How? (Chest pain, [place], [place], pneumonia, PE, COPD, DKA, ARF, appy, cholecystitis, CVA, Diverticulitis, Homicidal, Suicidal, threat to staff... and all critical care pts) @ -No - Lab Data Result diagrams: 02/06/23 11:13 02/06/23 11:13 Lab Results 02/06/23 02/06/23 Range/Units 11:13 11:13 WBC 14.8 H (3.8-10.6) k/uL RBC 4.93 (3.80-5.40) m/uL Hgb 14.0 (11.4-16.0) gm/dL Hct 41.0 (34.0-46.0) % MCV 83.1 (80.0-100.0) fL MCH 28.5 (25.0-35.0) pg MCHC 34.3 (31.0-37.0) g/dL RDW 13.6 (11.5-15.5) % Plt Count 256 (150-450) k/uL MPV 9.3 Neutrophils % 81 % Lymphocytes % 14 % Monocytes % 3 % Eosinophils % 0 % Basophils % 0 % Neutrophils # 12.0 H (1.3-7.7) k/uL Lymphocytes # 2.0 (1.0-4.8) k/uL Monocytes # 0.5 (0-1.0) k/uL Eosinophils # 0.0 (0-0.7) k/uL Basophils # 0.0 (0-0.2) k/uL Sodium 139 (137-145) mmol/L Potassium 3.9 (3.5-5.1) mmol/L Chloride 100 (98-107) mmol/L Carbon Dioxide 25 (22-30) mmol/L Anion Gap 14 mmol/L BUN 12 (7-17) mg/dL Creatinine 0.64 (0.52-1.04) mg/dL Est GFR (CKD-EPI)AfAm >90 (>60 ml/min/1.73 sqM) Est GFR (CKD-EPI)NonAf >90 (>60 ml/min/1.73 sqM) Glucose 115 H (74-99) mg/dL Calcium 10.1 (8.4-10.2) mg/dL Total Bilirubin 1.4 H (0.2-1.3) mg/dL AST 32 (14-36) U/L ALT 43 H (4-34) U/L Alkaline Phosphatase 91 (38-126) U/L Total Protein 7.6 (6.3-8.2) g/dL Albumin 4.5 (3.5-5.0) g/dL Disposition Clinical Impression: Accelerated hypertension Disposition: HOME SELF-CARE Condition: Stable Instructions (If sedation given, give patient instructions): Hypertension (ED) Additional Instructions: Please call the hospital line and ask for the ultrasound department. They may move up your ultrasound appointment. Continue taking your high blood pressure medications as directed and return for any new or worsening symptoms [phone] - ask for ultrasound department Is patient prescribed a controlled substance at d/c from ED?: No Referrals: Ra Granados MD [Primary Care Provider] - 1-2 days Time of Disposition: 13:06
== END 2023-02-06 13:25 | disposition home or self-care (01) ==
LOC: EC 09:48
DX: I10 Essential (primary) hypertension (principal); K21.9 Gastro-esophageal reflux disease without esophagitis; F17.200 Nicotine dependence, unspecified, uncomplicated; Z79.899 Other long term (current) drug therapy
CPT/HCPCS: 36415; 80053; 85025; 93005; 99284

== ENCOUNTER → 2023-02-14 | Outpatient (CLI) | payer OTHER ==
--- NOTE | 2023-02-14 13:54 | MM ---
Reason for Exam: Additional evaluation requested from abnormal screening. Last screening mammogram was performed less than 1 month ago. Patient History: Menarche at age 13. First Full-Term at age 20. Risk Values: Augusta 5 year model risk: 0.6%. NCI Lifetime model risk: 6.9%. Prior Study Comparison: 01/16/2023 Bilateral MG 3D screening mammo w/cad, [facility]. Tissue Density: Left: The breast tissue is heterogeneously dense. This may lower the sensitivity of mammography. Findings: Analyzed By CAD. Density does persist 12:00 position left breast 7 cm from the nipple. Ultrasound is recommended. Overall Assessment: Incomplete: need additional imaging evaluation, BI-RAD 0 Management: Diagnostic Breast Ultrasound of the left breast. . Results were given to the patient verbally at the time of exam. Patient should continue monthly self-breast exams. A clinical breast exam by your physician is recommended on an annual basis. This exam should not preclude additional follow-up of suspicious palpable abnormalities. Note on Augusta scores and lifetime risk: 1. A Augusta score greater than 3% is considered moderate risk. If this is the case, consider specialist referral to assess eligibility for a risk reducing agent. 2. If overall lifetime risk for the development of breast cancer is 20% or higher, the patient may qualify for future screening with alternating mammogram and breast MRI. Electronically signed and approved by: Gomez Parra M.D. Radiologis
--- NOTE | 2023-02-14 14:25 | USB ---
Reason for Exam: Additional evaluation requested from abnormal screening. Patient History: Menarche at age 13. First Full-Term at age 20. Risk Values: Augusta 5 year model risk: 0.6%. NCI Lifetime model risk: 6.9%. Technique: Method: Targeted. Prior Study Comparison: 01/16/2023 Bilateral MG 3D screening mammo w/cad, [facility]. Findings: The upper section of the breast of the left breast, the axilla of the left breast and the retroareolar of the left breast were scanned. There is a simple appearing cyst at the left 12:00 position 6 cm from the nipple measuring 5 x 4 mm. 6 month follow-up is recommended. Overall Assessment: Probably benign, BI-RAD 3 Management: Diagnostic Mammogram of the left breast. A clinical breast exam by your physician is recommended on an annual basis and results should be correlated with mammographic findings. This exam should not preclude additional follow-up of suspicious palpable abnormalities. Results were given to the patient verbally at the time of exam. Electronically signed and approved by: Gomez Parra M.D. Radiologis
== END | disposition home or self-care (01) ==
LOC: RADMAMWWP 13:36
PROVIDERS: ATTEND Family Medicine
DX: N60.02 Solitary cyst of left breast (principal); R92.332 Mammographic heterogeneous density, left breast
CPT/HCPCS: 77061; 77065

== ENCOUNTER 2023-02-26 08:17 | Day surgery (SDC) | payer OTHER ==
[2023-02-21 15:55] VITALS: BMI 38.6
[~2023-02-26 08:17] MED LIST: LACTATED RINGERS 1,000 ML IV SCH
[2023-02-26 09:02] VITALS: RESP 16; TEMP 97.1
[2023-02-26 09:04] LABS: Glucose,Whole Blood 125 mg/dL (70-110)
[2023-02-26] MEDS ORDERED: PROPOFOL 10 MG/ML 20 ML VIAL IV ONE (09:06)
[2023-02-26] MEDS ORDERED: LIDOCAINE 1% INJ 10MG/ML (20 ML MDV) ONE (09:06)
--- NOTE | 2023-02-26 09:22 | P.PCN ---
Date of Procedure: 02/26/23 Procedure(s) Performed: BRIEF HISTORY: Patient is a 47-year-old pleasant 8 female scheduled for an elective colonoscopy as a part of screening for colon cancer. PROCEDURE PERFORMED: Colonoscopy with snare polypectomy and tattooing with Ashlyn ink. PREOPERATIVE DIAGNOSIS: Screening for colon cancer. IV sedation per Anesthesia. PROCEDURE: After informed consent was obtained, the patient, was brought into the endoscopy unit. IV sedation was administered by Anesthesia under continuous monitoring. Digital rectal examination was normal. Initially the Olympus CF-160 flexible video colonoscope was then inserted in the rectum, gradually advanced into the cecum without any difficulty. Careful examination was performed as the scope was gradually being withdrawn. Ileocecal valve and the appendiceal orifice were visualized and appeared normal. Prep was excellent. Mucosa of the cecum, appeared normal. Ascending colon there was a 1 cm polyp removed by snare polypectomy. In the transverse colon there was another 1 cm polyp removed by snare polypectomy. Rest of the ascending colon, transverse colon, descending colon, normal. In the proximal; at 40 cm from the anal was there was an ulcerated 2 cm pedunculated polyp that was removed by snare polypectomy followed by tattooing with Ashlyn ink. Rest of the sigmoid colon, and rectum appeared normal. Retroflexion was performed in the rectum and no lesions were seen. The patient tolerated the procedure well. IMPRESSION: 1 cm ascending colon polyp status post polypectomy 1 cm transverse colon polyp status post polypectomy 2 cm pedunculated ulcerated proximal sigmoid; polyp at 40 cm from the anal verge status post polypectomy followed by tattooing with Ashlyn ink RECOMMENDATIONS: Findings of this examination were discussed with the patient is well as her family..Was advised to follow with the biopsy results. If the biopsy with adenoma she can have a repeat colonoscopy in 3 years.
[2023-02-26 09:43] VITALS: BP 108/69; PULSE 68
== END 2023-02-26 10:15 | disposition home or self-care (01) ==
LOC: ORWHC2ENDO 08:17
PROVIDERS: ATTEND Internal Medicine Gastroenterology
DX: Z12.11 Encounter for screening for malignant neoplasm of colon (principal); K63.5 Polyp of colon; I10 Essential (primary) hypertension; E78.5 Hyperlipidemia, unspecified; E11.9 Type 2 diabetes mellitus without complications; K21.9 Gastro-esophageal reflux disease without esophagitis; Z79.83 Long term (current) use of bisphosphonates; Z79.811 Long term (current) use of aromatase inhibitors; Z79.899 Other long term (current) drug therapy
CPT/HCPCS: 81025; 45385; 45381; J2001; J2704; 88305

== ENCOUNTER → 2023-09-02 | Outpatient (CLI) | payer OTHER ==
--- NOTE | 2023-09-02 14:52 | USB ---
Reason for Exam: Follow-up at short interval from prior study. Patient History: Menarche at age 13. First Full-Term at age 20. Risk Values: Augusta 5 year model risk: 0.6%. NCI Lifetime model risk: 6.9%. Technique: Method: Targeted. Prior Study Comparison: 01/16/2023 Bilateral MG 3D screening mammo w/cad, [facility]. 02/14/2023 Left MG 3D work up w/cad , [facility]. Findings: The upper section of the breast of the left breast, the axilla of the left breast and the retroareolar of the left breast were scanned. There is a cystlike area at the 12:00 position 1 cm from the nipple measuring 0.5 x 0.6 x 0.4 cm with good through-transmission and posterior wall enhancement. This is not clearly correlated with the prior examination. Previous ultrasound finding does not correlated with current exam. Overall Assessment: Benign, BI-RAD 2 Management: Screening Mammogram of both breasts in 6 months. A clinical breast exam by your physician is recommended on an annual basis and results should be correlated with mammographic findings. This exam should not preclude additional follow-up of suspicious palpable abnormalities. Results were given to the patient verbally at the time of exam. Electronically signed and approved by: Reji Hale D.O. Radiologis
== END | disposition home or self-care (01) ==
LOC: RADUSWWP 14:04
PROVIDERS: ATTEND Family Medicine
DX: R92.8 Other abnormal and inconclusive findings on diagnostic imaging of breast (principal)